=== PATIENT | female | born 1995 | race Caucasian/White ===

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

== ENCOUNTER 2017-04-04 09:25 | Day surgery (SDC) | payer MEDICAID ==
[2017-04-04 10:25] LABS: BASOPHILS 0.1 % (0-2); EOSINOPHILS 0.6 % (0-7); HEMATOCRIT 40.2 % (36.0-48.0); HEMOGLOBIN 12.7 g/dL (12-16); IMMATURE GRANULOCYTES 0.3 % (0-5); LYMPHOCYTES 15.1 % (15-50); MCH 26.2 pg (26.0-34.0); MCHC 31.6 g/dL (31.0-37.0); MCV 83.1 fL (80.0-100.0); MONOCYTES 5.7 % (2-11); NEUTROPHILS 78.2 % (40-80); PLATELET COUNT 260 10x3/uL (130-400); RBC 4.84 10x6/uL (4.00-5.40); RDW 13.2 % (11.5-14.5); WBC 15.7 10x3/uL (4.8-10.8)
[2017-04-04 10:32] LABS: AMYLASE - SERUM 47 U/L (25-115); LIPASE 135 U/L (73-393)
[2017-04-04 10:50] LABS: APPEARANCE HAZY (CLEAR); BACTERIA MODERATE /hpf (NONE SEEN); BILIRUBIN NEGATIVE (NEGATIVE); COLOR DK YELLOW (YELLOW); EPITHELIAL CELLS 0-5 /hpf (0-5); GLUCOSE NEGATIVE (NEGATIVE); KETONE NEGATIVE (NEGATIVE); MUCUS <1+ /lpf (NONE SEEN); NITRITE NEGATIVE (NEGATIVE); PROTEIN NEGATIVE (NEGATIVE); RED CELLS - URINE 25-50 /hpf (0-5); SPECIFIC GRAVITY 1.005 (1.005-1.020); WHITE CELLS - URINE 0-5 /hpf (0-5)
[2017-04-04 11:53] LABS: ALBUMIN 3.4 g/dL (3.4-5.0); ALKALINE PHOSPHATASE 85 U/L (46-116); ALT (SGPT) 110 U/L (10-68); BILIRUBIN - TOTAL 0.96 mg/dL (0.2-1.3); CALC OSMOLALITY 278 mosm/kg (275-300); CALCIUM 9.3 mg/dL (8.5-10.1); CARBON DIOXIDE 22.3 mmol/L (21.0-32.0); CHLORIDE - SERUM 103 mmol/L (98-107); CREATININE - SERUM 0.8 mg/dL (0.6-1.3); GLUCOSE 97 mg/dL (74-106); PROTEIN - SERUM 7.7 g/dL (6.4-8.2); SODIUM 139 mmol/L (136-145); UREA NITROGEN 14 mg/dL (7-18); eGFR NON AFRICAN AMERICAN > 90 mL/min (90-120)
--- NOTE | 2017-04-04 13:50 | NUR ---
PATIENT TO ROOM AT THIS TIME. IV INTACT. STATED IV HURTING AND WOULD LIKED IT CHANGED. EXPLAINED TO PATIENT I WOULD TRY TO CHANGE IT FOR HER. VERBALIZED UNDERSTANDING. ADMITTED AND ASSESSED. VS STABLE. CALL LIGHT WITHIN REACH.
[2017-04-04] MEDS ORDERED: GLUCOPHAGE500 MG PO (14:00)
[2017-04-04] MEDS ORDERED: PRENATAL COMPLE1 TAB PO (14:00)
[2017-04-04] MEDS ORDERED: VITAMIN D2000 UNIT PO (14:01)
[2017-04-04] MEDS ORDERED: IBUPROFEN800 MG PO (14:02)
[2017-04-04 14:10] VITALS: BP 120/71; BMI 40.4
--- NOTE | 2017-04-04 14:30 | NUR ---
PATIENT IV RESTARTED IN RIGHT WRIST X 2 STICKS. 20G. PATIENT TOLERATED WITH SMALL AMOUNT OF PAIN. NO COMPLAINTS. STATED PAIN WAS GOOD EVER SINCE RECIEVED TORADOL IN ER.
--- NOTE | 2017-04-04 15:00 | NUR ---
PATIENT TOLERATED CLEAR LIQUIDS WITH NO PROBLEMS. IV INTACT. CALL LIGHT WITHIN REACH. EXPLAINED NPO PAST MN. VERBALIZED UNDERSTANDING.
[2017-04-04 16:20] VITALS: BP 126/84; BP 128/73
--- NOTE | 2017-04-04 18:00 | NUR ---
PATIENT IN ROOM RESTING QUIETLY AT THIS TIME. NO COMPLAINTS OR SIGNS OF DISTRESS. CALL LIGHT WITHIN REACH.
[2017-04-04 20:00] VITALS: BP 129/83
--- NOTE | 2017-04-04 20:00 | NUR ---
ASSESSMENT PER FLOWSHEET. IV PATENT LEFT HAND SALINE LOCKED. ADDED NS AT 20CC'S/HR FOR ANTIBIOTIC USE. NS CONNECTED TO LEFT HAND SALINE LOCK SITE. PT SITTING ON SIDE OF BED NO COMPLAINTS AT THIS TIME.
--- NOTE | 2017-04-04 21:00 | NUR ---
PT'S RELATIVES BRING HER 2 WEEK OLD DAUGHTER TO SEE HER.
--- NOTE | 2017-04-05 | NUR ---
DENIES NEEDS NPO FOR AM SURGERY PERMITS SIGNED AND ON CHART. SR UP X2 CALL LIGHT WITHIN REACH.
[2017-04-05 00:03] LABS: HCG URINE NEGATIVE (NEGATIVE)
--- NOTE | 2017-04-05 03:20 | NUR ---
EYES CLOSED RESPIRATIONS WITH EASE AND UNLABORED. REMAINS NPO.UA SPECIMEN OBTAINED EARILIER AND SENT TO LAB.
--- NOTE | 2017-04-05 04:31 | NUR ---
MEDS GIVEN PER AUG. SLEEPING IN BED WITH CPAP ON REMAINS NPO FOR SURGERY.
[2017-04-05 05:06] LABS: BASOPHILS 0.5 % (0-2); EOSINOPHILS 3.5 % (0-7); HEMATOCRIT 34.3 % (36.0-48.0); HEMOGLOBIN 10.7 g/dL (12-16); IMMATURE GRANULOCYTES 0.1 % (0-5); LYMPHOCYTES 48.7 % (15-50); MCH 26.4 pg (26.0-34.0); MCHC 31.2 g/dL (31.0-37.0); MCV 84.7 fL (80.0-100.0); MEAN PLATELET VOLUME 10.4 fL (7.4-10.4); MONOCYTES 4.3 % (2-11); NEUTROPHILS 42.9 % (40-80); PLATELET COUNT 207 10x3/uL (130-400); RBC 4.05 10x6/uL (4.00-5.40); RDW 13.4 % (11.5-14.5); WBC 7.5 10x3/uL (4.8-10.8)
[2017-04-05 05:40] LABS: ALBUMIN 2.7 g/dL (3.4-5.0); ALKALINE PHOSPHATASE 75 U/L (46-116); ALT (SGPT) 120 U/L (10-68); AMYLASE - SERUM 38 U/L (25-115); BILIRUBIN - TOTAL 0.76 mg/dL (0.2-1.3); CALC OSMOLALITY 283 mosm/kg (275-300); CALCIUM 8.5 mg/dL (8.5-10.1); CARBON DIOXIDE 25.3 mmol/L (21.0-32.0); CHLORIDE - SERUM 109 mmol/L (98-107); CREATININE - SERUM 0.6 mg/dL (0.6-1.3); GLUCOSE 90 mg/dL (74-106); LIPASE 107 U/L (73-393); POTASSIUM - SERUM 3.9 mmol/L (3.5-5.1); PROTEIN - SERUM 5.8 g/dL (6.4-8.2); SODIUM 143 mmol/L (136-145); UREA NITROGEN 11 mg/dL (7-18); eGFR NON AFRICAN AMERICAN > 90 mL/min (90-120)
--- NOTE | 2017-04-05 07:15 | NUR ---
REPORT RECEIVED FROM [facility] FACILITIES NURSE. CALL LIGHT IN REACH.
--- NOTE | 2017-04-05 08:30 | NUR ---
PATIENT AND FAMILY WANTED ANOTHER SURGEON TO DO SURGERY. RYAN QUINONEZ IN OR NOTIFIED ABOUT SITUATION. STATES HE WILL SEND DR. ST OVER HERE TO SPEAK WITH PATIENT.
[2017-04-05 08:34] VITALS: BP 121/67
--- NOTE | 2017-04-05 08:46 | NUR ---
ASSESSMENT COMPLETED. ZOFRAN AND MORPHINE SIVP FOR C/O NAUSEA AND PAIN. GRANDMOTHER AT BEDSIDE. CALL LIGHT IN REACH. WILL CONTINUE WITH PLAN OF CARE.
--- NOTE | 2017-04-05 10:56 | NUR ---
IN BED WITH EYES CLOSED. RESP EVEN AND UNLABORED. CALL LIGHT IN REACH. FAMILY IN ROOM.
--- NOTE | 2017-04-05 11:29 | NUR ---
Patient Name: VIBHA ESCOTO Admission Status: ER Accout number: [id number] Admission Date: 04-04-2017 : 1995 Admission Diagnosis: Attending: SEVEN ST Current LOS: 1 Anticipated DC Date: 04-06-2017 Planned Disposition: Home [place] [employer] [place] Discharge Planning Comments: CM MET WITH PATIENT REGARDING D/C NEEDS AND PLANS. PATIENT STATED SHE LIVES WITH HER FAMILY AND WILL RETURN THERE AT DISCHARGE. PATIENT STATED SHE HAD A BABY 2 WEEKS AG0 AND NOW BACK IN HOSPITAL. PATIENT STATED THERE IS ONLY ONE STEP TO ENTER HOME AND NO STAIRS INSIDE. PATIENT HAS A GLUCOMETER AND CHECKS 4X DAY. PATIENT STATED DR. ANGUIANO IS HER PCP AND USES [facility] IN [place]. PATIENT DENIES NEEDS FOR HOME HEALTH AT THIS TIME. CM WILL CONTINUE TO FOLLOW PATIENT WITH D/C NEEDS AND PLANS. PCP DR[facility] - [phone] [facility] ([facility]) [phone] Wet Finisher Wool: Modesta Acevedo Is the patient Alert and Oriented? Yes 0 * How many steps to enter\exit or inside your home? 1 0 * PCP DR. ANGUIANO 0 * Pharmacy [facility] ([place]) 0 * Preadmission Environment Home with Family 0 * ADLs Independent 0 * Equipment Glucometer 0 * List name and contact numbers for known caregivers / representatives who currently or will assist patient after discharge: [facility] SAMUELTIGIST ([facility]) [phone] 0 * Community resources currently utilized None 0 * Additional services required to return to the preadmission environment? Yes 0 * Can the patient safely return to the preadmission environment? Yes 0 * Has this patient been hospitalized within the prior 30 days at any hospital? Yes 0 Grand Total: 0
[2017-04-05 12:16] VITALS: BP 115/76
--- NOTE | 2017-04-05 12:44 | NUR ---
TYLENOL IV PER C/O HEADACHE. FAMILY IN ROOM. CALLLIGHT IN REACH.
--- NOTE | 2017-04-05 14:55 | NUR ---
MARIELLE EVANGELISTA. CALL LIGHT IN REACH.
--- NOTE | 2017-04-05 16:20 | NUR ---
NO NEEDS VOICED AT THIS TIME. CALL LIGHT IN REACH.
--- NOTE | 2017-04-05 17:04 | NUR ---
PREOP MEDS ADMINISTERED.
[2017-04-05 17:46] VITALS: BP 120/74
--- NOTE | 2017-04-05 18:36 | NUR ---
REQUESTING PAIN MEDS. MORPHINE 4 MG SIVP. NO OTHER CHANGES IN INITIAL ASSESSMENT. CALL LIGHT IN REACH. WILL CONTINUE WITH PLAN OF CARE.
[2017-04-05 19:30] VITALS: BP 112/66
--- NOTE | 2017-04-05 20:00 | NUR ---
ASSESSMENT PER FLOWSHEET. STILL WAITING TO GO TO SURGERY REMAINS NPO. REQUEST BLOOD SUGAR BE TAKEN FEELING WEAK. FSBS=83.
--- NOTE | 2017-04-05 22:28 | NUR ---
C/O NAUSEA. ZOFRAN 4MG IVP GIVEN FOR NAUSEA.
--- NOTE | 2017-04-05 22:38 | NUR ---
TO SURGERY PER BED FAMILY AT BEDSIDE.C/O NAUSEA ZOFRAN 4MG IVP GIVEN FOR NAUSEA.
[2017-04-06] VITALS (9 sets, daily range): BP systolic 125–147; BP diastolic 71–86
--- NOTE | 2017-04-06 00:11 | NUR ---
PREP APPLIED 2342 PREP DRY 2345 DRAPE APPLIED 2349
--- NOTE | 2017-04-06 01:29 | NUR ---
REC'D FROM PACU PER BED POST OP JAMIL VALDIVIA. SITES X4 C/D/I. IV PATENT LEFT WRIST OF NS AT KVO.HOB UP 30 DEGREES. SR UP X2 CALL LIGHT WITHIN REACH. MONITORING VITAL SIGNS.
--- NOTE | 2017-04-06 01:43 | NUR ---
SET UP WALLPAPER EMBOSSER HELPER OF DILAUDID WITH SETTINGS AT 0.2MG Q10MIN WITH NO L/O.
--- NOTE | 2017-04-06 04:40 | NUR ---
AWAKE AMBULATED TO BR VOIDED. ASSISTED BACK TO BED SR UP X2 CALL LIGHT WITHIN REACH. RELATIVE AT BEDSIDE. CPAP ON.
--- NOTE | 2017-04-06 09:30 | NUR ---
ASSESSMENT COMPLETE. IV TO L WRIST PATENT. NS INFUSING AT KVO. WIRE BRUSHER DILAUDID 0.2-10-0 IN USE FOR PAIN CONTROL. BANDAIDS X 4 TO ABDOMINAL INCISIONS. HAS NOT PASS FLATUS AT THIS TIME. DENIES ANY NAUSEA AT THIS TIME. DOES NOT WANT TO ADVANCE DIET AT THIS TIME. FAMILY AT BEDSIDE.
--- NOTE | 2017-04-06 11:35 | NUR ---
PATIENT WAS THINKING THAT BLOOD SUGAR WAS LOW AND REQUESTED TO HAVE IT CHECKED. FINGER STICK RESULTED 86.
[2017-04-06] MEDS ORDERED: HYDROCODON-ACE1 EAC7 PO (12:06)
--- NOTE | 2017-04-06 12:30 | NUR ---
IV REMOVED.CATHETER TIP. DISCHARGE TEACHING GIVEN TO PATIENT AND FAMILY. SCRIPT FOR NORCO GIVEN TO PATIENT.
--- NOTE | 2017-04-06 12:45 | NUR ---
DC'D HOME WITH FAMILY. ESCORTED TO VEHICLE BY ADVERTISING COORDINATOR VIA WC WITH BELONGINGS AND SCRIPT FOR [place].
--- NOTE | 2017-04-21 10:04 | OP ---
PATIENT NAME: VIBHA ESCOTO MEDICAL RECORD: [id number] :[birth year] LOCATION:D.[facility] ADMISSION DATE: SURGEON: SE[address] ST MD DATE OF OPERATION: 04/06/2017 PREOPERATIVE DIAGNOSIS: Symptomatic gallstones. POSTOPERATIVE DIAGNOSES: Symptomatic gallstones with hepatomegaly. PROCEDURES: 1. Laparoscopic cholecystectomy. 2. Intraoperative cholangiography without immediate surgeon interpretation. 3. An 18-gauge core needle liver biopsies. SURGEON: [address] MD EDITORIAL PROJECT MANAGER: None. BLOOD LOSS: Minimal. ANESTHESIA: General. COMPLICATIONS: None. The risks, possible complications and alternatives to procedure were explained to the patient. She elects to proceed. The discussion specifically included, but was not limited to, bleeding requiring emergency reoperation, infection, intestinal injury, as well as common bile duct injury. OPERATIVE COURSE: The patient was conveyed to the operating room electively on. 04/06/2017. General anesthesia was induced by the anesthesia staff. The abdomen was sterilely prepped and draped. A small skin bobby was accomplished in the left upper quadrant. A Veress needle was inserted through the skin bobby into the peritoneal cavity. CO2 insufflation was begun. Once a sufficient pneumoperitoneum had been achieved, a 5-mm trocar was inserted through an incision in the right upper quadrant. Under direct internal vision utilizing a television camera, a 12-mm trocar was inserted through an incision at the umbilicus. Another 5-mm trocar was inserted through an incision in the right upper quadrant. Another 5-mm trocar was inserted through an incision in the epigastrium. During insertion of the Veress needle and all trocars, there appeared to have been no injury to the bowels, any intraperitoneal or retroperitoneal structures. Under laparoscopic guidance, I percutaneously accessed the right upper quadrant utilizing an 18-gauge core needle liver biopsy device. Cores were obtained over the convexity of the liver. The gallbladder was grasped. I advanced a cholangiogram trocar. I punctured the fundus of the gallbladder. I aspirated bile. I then injected dye. Under real time fluoroscopy, static cholangiographic graphic images were obtained and are sent to the radiologist for interpretation. I aspirated bile and withdrew the cholangiogram trocar. The gallbladder was grasped and retracted cephalad. The infundibulum was grasped and retracted laterally. Blunt dissection was begun in the triangle of Calot. One cystic OPERATIVE REPORT [id number] VIBHA ESCOTO A artery and one cystic duct were identified. These were clipped multiply and divided between clips. The gallbladder was then excised from its bed and the liver. It was placed within an Endobag retrieval device and was withdrawn through the umbilical fascia defect. The 12-mm trocar was replaced and the abdomen reinsufflated. I irrigated and aspirated in the right upper quadrant. There was no bleeding even at low pressure of 8. Tanya was added to the gallbladder fossa for additional hemostasis. A Trenton-Chris suture closure device and 0 Vicryl sutures were used to close the umbilical fascia defect. Skin at the umbilicus was closed with multiple intracuticular 4-0 Vicryls and then Dermabond. The trocar sites were closed with interrupted 4-0 Vicryls in an intracuticular fashion. The patient was then extubated and conveyed to post-anesthesia care unit where she was in stable condition. TRANSINT:[id number] Voice Confirmation ID: [id number] DOCUMENT ID: [id number] SE[facility] ST MD at 1004 CC: SVEN WOOD MD [id number] DICTATION DATE: 04/10/17 170 METAL PATTERN MAKER: 04/10/171942 [facility] 04/06/17 [facility] [address] [place] [address]
--- NOTE | 2017-04-21 10:04 | CN ---
PATIENT NAME:VIBHA ESCOTO MEDICAL RECORD: [id number] : [birth year] LOCATION:D.[facility] ADMIT DATE: ACCOUNT: [id number] CONSULTING PHYSICIAN: SEVEN ST MD REFERRING PHYSICIAN: SEVEN ST MD DATE OF CONSULTATION: 04/04/2017 CHIEF COMPLAINT: Pain. HISTORY OF PRESENT ILLNESS: The patient presented through the Emergency Room with abdominal pain. I have personally discussed her case with Dr. Roth, the Emergency Room physician. The patient has had a new onset of right upper quadrant pain. There was a band like component to it. It is in the epigastrium. It radiates around to the back. It is worsening in intensity. Palpation aggravates. Nothing alleviates. The patient does have a Mike's sign. The patient does have peritonitis to percussion in the right upper quadrant. No Rovsing sign. The patient underwent a gallbladder ultrasound. I personally reviewed the ultrasonographic images. I have personally reviewed the radiologist's report. The patient has cholelithiasis and significant gallbladder wall thickening measuring up to 6.8 mm in thickness. Common bile duct was poorly visualized; however, it appears to be about 3 mm in diameter. The patient has hepatomegaly as well. This is a consultation note addendum. For the typed portion of the consult note, please see the chart. This will include past medical and surgical history, current medications, allergies, social history, as well as family history. The patient has blood cultures, which are pending. She appears comfortable. The risks, possible complications, and alternatives to laparoscopic cholecystectomy, possible intraoperative cholangiography, and possible liver biopsy were explained to the patient. She elects to proceed. The discussion specifically included, but was not limited to, bleeding requiring emergency reoperation, infection, intestinal injury as well as common bile duct injury. REVIEW OF SYSTEMS: Positive for nausea, positive for vomiting. Positive for abdominal pain. No fever, no chills, no headache, no chest pain, no shortness of breath. The patient is 2 weeks . PHYSICAL EXAMINATION: GENERAL: The patient does not appear acutely ill. She does not appear chronically ill. The entire physical examination was performed in the presence of a female nurse. VITAL SIGNS: Reviewed. EARS: External ears appear normal. EYES: Extraocular movements are intact. NECK: Trachea is midline. CHEST: No intercostal retractions. PULMONARY: Nonlabored, no stridor. ABDOMEN: As described above. EXTREMITIES: No peripheral cyanosis. INTEGUMENT: No rash, no ulcerations. PSYCHIATRIC: Normal affect. NEUROLOGIC: Nonfocal, no lethargy. The patient answers questions appropriately, moves all extremities well. CONSULT REPORT [id number] TIGISTNICANORVIBHA A BACK: No thoracic kyphosis. LYMPHATICS: No lymphangitic streaking of the exposed extremities. IMPRESSION: Acute cholecystitis, hepatomegaly. PLAN: Laparoscopic cholecystectomy, possible intraoperative cholangiography, and possible liver biopsy. TRANSINT:[id number] Voice Confirmation ID: [id number] DOCUMENT ID: [id number] [facility] [facility] MD at 1004 CC: [id number] DICTATION DATE: 04/05/1736 SUPERVISOR NUT PROCESSING: 04/05/17 1122 [facility] 04/06/17 [id number] [place] [address]
== END 2017-04-06 12:45 | disposition home or self-care (01) ==
LOC: OBSVTIME → D.OPS 09:25 → D.ER 09:25 → OBSVTIME 12:33 → D.ER 12:33 → D.MS 12:33 → EDSTATUS 04-05 10:00 → D.OPS 04-06 12:45 → D.MS 04-06 12:45
PROVIDERS: Anesthesiology; Family Medicine; Physician Assistant
DX: K80.00 Calculus of gallbladder with acute cholecystitis without obstruction (principal); R16.0 Hepatomegaly, not elsewhere classified